=== PATIENT | female | born 1975 | race Hispanic/Latino ===

== ENCOUNTER 2020-02-28 07:32 | Outpatient (CLI) | payer OTHER ==
--- NOTE | 2020-02-28 08:27 | ULT ---
ULTRASOUND ABDOMEN COMPLETE: DATE: 02/28/2020 HISTORY: 44-year-old female with right upper quadrant abdominal pain FINDINGS: Liver:Diffusely increased echogenicity may or may not represent fatty liver. Gallbladder:Not visualized. Patient denies surgery. Common duct:7 mm. Spleen:No splenomegaly. Pancreas:Nonspecific sonographic appearance. Kidneys:No hydronephrosis. Abdominal aorta:No aneurysm. Inferior vena cava:Patent where visualized. Free fluid: None IMPRESSION: 1) gallbladder not visualized, presumably status post cholecystectomy, but patient denies surgery. 2) common duct is dilated to 7 mm. This could be explained by status post cholecystectomy. However, i f it is true that the patient has not had surgery, this raises the possibility of partial common duct obstruction. 3) questionable hepatic steatosis.
== END 2020-02-28 07:33 | disposition home or self-care (01) ==
LOC: BICULT 07:32
PROVIDERS: ATTEND Nurse Practitioner Family
DX: R10.11 Right upper quadrant pain (principal); K83.8 Other specified diseases of biliary tract; Z90.49 Acquired absence of other specified parts of digestive tract
CPT/HCPCS: 93975